=== PATIENT | male | born 1960 ===

== ENCOUNTER 2021-07-30 15:04 | Outpatient (CLI) | payer BC ==
--- NOTE | 2021-07-30 16:44 | XRAY Report ---
PROCEDURE: Chest 2 View X-Ray INDICATIONS: COUGH TECHNIQUE: 2 view(s) of the chest. COMPARISON: None. FINDINGS: Surgical changes and devices: None. Lungs and pleura: No pleural effusions or pneumothorax. Masslike consolidation involving right upper lobe is seen measures 4 x 4.8 cm in size. Left lung is clear. Mediastinum: Mediastinal contours are normal. Heart size is normal. Bones and chest wall: No suspicious bony abnormalities. Soft tissues appear unremarkable. IMPRESSION: 1. Masslike consolidation in right upper lobe highly concerning for malignant process in this area. I nfectious process is less likely. Consider CT of chest for further evaluation of this region. Reviewed by: Pepe Cabezas MD on 07/30/2021 4:43 PM PDT Approved by: Pepe Cabezas MD on 07/30/2021 4:43 PM PDT Station ID: [id number]
== END 2021-07-30 15:05 | disposition home or self-care (01) ==
LOC: DI.N 15:04
PROVIDERS: ATTEND Otolaryngology
DX: R05.9 Cough, unspecified (principal); R91.8 Other nonspecific abnormal finding of lung field

== ENCOUNTER 2021-09-20 21:00 | Outpatient (CLI) | payer BC | END 2021-09-20 21:01 | disposition short-term general hospital (02) | LOC: EMS 21:00 | DX: R07.9 Chest pain, unspecified (principal); M79.602 Pain in left arm | CPT/HCPCS: A0425; A0427 ==

== ENCOUNTER 2021-10-01 07:03 | Outpatient (CLI) | payer BC | END 2021-10-01 07:04 | disposition short-term general hospital (02) | LOC: EMS 07:03 | DX: R06.02 Shortness of breath (principal) | CPT/HCPCS: A0425; A0427 ==